=== PATIENT | male | born 1985 | race American Indian/Alaskan Native ===

== ENCOUNTER 2017-12-23 14:40 | Emergency (ER) | payer OTHER ==
[2017-12-23 15:11] VITALS: BP 121/81; PULSE 77; RESP 16; TEMP 98.2; O2SAT 99
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
== END 2017-12-23 16:30 | disposition home or self-care (01) ==
LOC: H.ER 14:40
DX: S39.012A Strain of muscle, fascia and tendon of lower back, initial encounter (principal); Y93.55 Activity, bike riding